=== PATIENT | male | born 1960 | race Caucasian/White ===

== ENCOUNTER 2017-04-24 10:43 | Inpatient (IN) | payer MEDICAID, OTHER ==
[2017-04-24] MEDS ORDERED: ASPIRIN 81 MG TAB PO (11:03)
[2017-04-24 11:51] LABS: ADD MAN DIFF? NO
[2017-04-24] MEDS: SOD CHLORIDE 0.9% 500 ML IV (12:01)
[2017-04-24] MEDS: PANTOPRAZOLE 40 MG INJ IV (12:07)
[2017-04-24 12:12] LABS: ALANINE AMINOTRANSFERASE 38 IU/L (13-69); ALBUMIN 3.2 g/dl (3.3-4.9); ALBUMIN/GLOBULIN RATIO 0.91; ALKALINE PHOSPHATASE 125 IU/L (42-121); ANION GAP 18 (8-16); ASPARTATE AMINO TRANSFERASE 45 IU/L (15-46); BILIRUBIN,INDIRECT 1.9 mg/dl (0-1.1); BILIRUBIN,TOTAL 1.9 mg/dl (0.2-1.3); BLOOD UREA NITROGEN 21 mg/dl (7-20); CALCIUM 8.3 mg/dl (8.4-10.2); CARBON DIOXIDE 19 mmol/L (21-31); CHLORIDE 105 mmol/L (97-110); CREATININE 0.84 mg/dl (0.61-1.24); GLUCOSE 212 mg/dl (70-220); LIPASE 197 U/L (23-300); POTASSIUM 3.8 mmol/L (3.5-5.1); SODIUM 138 mmol/L (135-144); TOTAL PROTEIN 6.7 g/dl (6.1-8.1)
[2017-04-24 12:25] LABS: INR 1.55; PROTIME 18.9 Sec (11.9-14.9); PT RATIO 1.5
[2017-04-24 12:26] LABS: PARTIAL THROMBOPLASTIN TIME 37.7 Sec (25.0-35.0)
[2017-04-24 12:41] LABS: WHITE BLOOD COUNT 7.4 10^3/ul (4.8-10.8)
[2017-04-24 12:41] LABS: ABNORMAL IP MESSAGE 1; BASOPHILS % 0.1 % (0.0-2.0); EOSINOPHILS % 0.3 % (0.0-7.0); LYMPHOCYTES % 13.4 % (15.0-51.0); MEAN CORPUSCULAR HEMOGLOBIN 16.5 pg (29.0-33.0); MEAN CORPUSCULAR HGB CONC 25.5 g/dl (32.0-37.0); MEAN CORPUSCULAR VOLUME 64.7 fl (82.0-101.0); MONOCYTE # 0.8 10^3/ul (0.3-0.9); MONOCYTES % 10.3 % (0.0-11.0); NEUTROPHIL # 5.6 10^3/ul (1.6-7.5); NEUTROPHILS % 75.4 % (39.0-77.0); NUCLEATED RED BLOOD CELLS% 0.4 /100WBC (0.0-0.0); PLATELET COUNT 177 10^3/UL (140-415); POSITIVE DIFF @See below
[2017-04-24 12:48] LABS: HEMOGLOBIN 2.8 g/dl (14.0-18.0)
[2017-04-24] MEDS: SOD CHLORIDE 0.9% 250 ML IV (12:52)
[2017-04-24 13:01] LABS: TROPONIN-I 0.881 ng/ml (0.00-0.12)
[2017-04-24 14:04] LABS: OCCULT BLOOD STOOL POSITIVE (NEGATIVE)
[2017-04-24] MEDS: OCTREOTIDE 50 MCG in SOD CHLORIDE 0.9% 25 ML IVPB (15:34)
[2017-04-24] MEDS: OCTREOTIDE 500 MCG in SOD CHLORIDE 0.9% 49 ML IV (16:10)
[2017-04-24] MEDS ORDERED: morphine 2 MG INJ IV (18:00)
[2017-04-24] MEDS ORDERED: ONDANSETRON 4 MG INJ IV (18:00)
[2017-04-24 18:15] LABS: CREATINE KINASE 78 IU/L (23-200)
[2017-04-24 18:27] LABS: CK INDEX 3.7
[2017-04-24 18:28] LABS: CK-MB 2.89 ng/ml (0.0-2.4); TROPONIN-I 0.832 ng/ml (0.00-0.12)
[2017-04-24] MEDS ORDERED: LORAZEPAM 2 MG INJ IV (18:30)
[2017-04-24 18:51] LABS: MAGNESIUM 1.9 mg/dl (1.7-2.5)
[2017-04-24] MEDS: FUROSEMIDE 20 MG INJ IV (21:46)
[2017-04-24] MEDS: PANTOPRAZOLE IV 80 MG in SOD CHLORIDE 0.9% 100 ML IV (22:04)
[2017-04-24] MEDS: PHYTONADIONE 10 MG in DEXTROSE 5% 50 ML IVPB (22:12)
[2017-04-24] MEDS: CHLORDIAZEPOXIDE 25 MG CAP PO (22:20)
[2017-04-25] MEDS: OCTREOTIDE 500 MCG in DEXTROSE 5% 49 ML IV ×2 (00:12→21:09)
[2017-04-25] MEDS: PANTOPRAZOLE IV 80 MG in SOD CHLORIDE 0.9% 100 ML IV ×2 (00:13→15:16)
[2017-04-25] MEDS: SOD CHLORIDE 0.9% 1,000 ML IV ×3 (00:14→18:59)
[2017-04-25 02:03] LABS: IMMEDIATE SPIN CROSSMATCH 1 8
[2017-04-25 05:20] LABS: ADD MAN DIFF? NO
[2017-04-25 05:29] LABS: ABNORMAL IP MESSAGE 1; BASOPHILS % 0.2 % (0.0-2.0); EOSINOPHILS # 0.1 10^3/ul (0.0-0.5); EOSINOPHILS % 1.1 % (0.0-7.0); HEMATOCRIT 19.7 % (42.0-52.0); LYMPHOCYTES # 0.8 10^3/ul (0.8-2.9); LYMPHOCYTES % 15.2 % (15.0-51.0); MEAN CORPUSCULAR HEMOGLOBIN 23.4 pg (29.0-33.0); MEAN CORPUSCULAR HGB CONC 31.5 g/dl (32.0-37.0); MEAN CORPUSCULAR VOLUME 74.3 fl (82.0-101.0); MONOCYTE # 0.6 10^3/ul (0.3-0.9); MONOCYTES % 10.4 % (0.0-11.0); NEUTROPHILS % 72.9 % (39.0-77.0); NUCLEATED RED BLOOD CELLS% 0.4 /100WBC (0.0-0.0); PLATELET COUNT 101 10^3/UL (140-415); POSITIVE DIFF @See below; RED BLOOD COUNT 2.65 10^6/ul (4.70-6.10); RED CELL DISTRIBUTION WIDTH 24.4 % (11.5-14.5)
[2017-04-25 05:29] LABS: WHITE BLOOD COUNT 5.5 10^3/ul (4.8-10.8)
[2017-04-25 05:48] LABS: CREATINE KINASE 98 IU/L (23-200)
[2017-04-25 05:52] LABS: HEMOGLOBIN 6.2 g/dl (14.0-18.0)
[2017-04-25 05:58] LABS: ALANINE AMINOTRANSFERASE 45 IU/L (13-69); ALBUMIN/GLOBULIN RATIO 0.78; ALKALINE PHOSPHATASE 114 IU/L (42-121); ANION GAP 12 (8-16); ASPARTATE AMINO TRANSFERASE 67 IU/L (15-46); BILIRUBIN,INDIRECT 3.8 mg/dl (0-1.1); BILIRUBIN,TOTAL 3.8 mg/dl (0.2-1.3); BLOOD UREA NITROGEN 21 mg/dl (7-20); CALCIUM 8.3 mg/dl (8.4-10.2); CARBON DIOXIDE 25 mmol/L (21-31); CHLORIDE 106 mmol/L (97-110); CREATININE 0.82 mg/dl (0.61-1.24); GLUCOSE 187 mg/dl (70-220); MAGNESIUM 1.9 mg/dl (1.7-2.5); PHOSPHORUS 3.4 mg/dl (2.5-4.9); POTASSIUM 3.6 mmol/L (3.5-5.1); SODIUM 139 mmol/L (135-144); TOTAL PROTEIN 6.8 g/dl (6.1-8.1)
[2017-04-25 06:00] LABS: CK INDEX 2.6; CK-MB 2.51 ng/ml (0.0-2.4)
[2017-04-25] MEDS: SOD CHLORIDE 0.9% 250 ML IV* (08:15)
[2017-04-25] MEDS: CHLORDIAZEPOXIDE 25 MG CAP PO ×3 (08:53→21:09)
[2017-04-25 09:55] LABS: PATH REVIEW CH
[2017-04-25 10:52] LABS: IMMEDIATE SPIN CROSSMATCH 1
[2017-04-25] MEDS: MULTIVITAMINS 10 ML, THIAMINE 100 MG, FOLIC ACID 1 MG in SOD CHLORIDE 0.9% 1,000 ML IVPB (11:00)
[2017-04-25] MEDS: FUROSEMIDE 20 MG INJ IV (13:14)
[2017-04-25 14:42] LABS: ADD MAN DIFF? NO
[2017-04-25 14:43] LABS: ABNORMAL IP MESSAGE 1; BASOPHILS % 0.2 % (0.0-2.0); EOSINOPHILS # 0.1 10^3/ul (0.0-0.5); EOSINOPHILS % 1.4 % (0.0-7.0); HEMOGLOBIN 8.3 g/dl (14.0-18.0); LYMPHOCYTES # 0.9 10^3/ul (0.8-2.9); LYMPHOCYTES % 18.5 % (15.0-51.0); MEAN CORPUSCULAR HEMOGLOBIN 24.2 pg (29.0-33.0); MEAN CORPUSCULAR HGB CONC 31.9 g/dl (32.0-37.0); MEAN CORPUSCULAR VOLUME 75.8 fl (82.0-101.0); MONOCYTE # 0.6 10^3/ul (0.3-0.9); MONOCYTES % 11.8 % (0.0-11.0); NEUTROPHIL # 3.3 10^3/ul (1.6-7.5); NEUTROPHILS % 67.5 % (39.0-77.0); NUCLEATED RED BLOOD CELLS% 0.6 /100WBC (0.0-0.0); PLATELET COUNT 102 10^3/UL (140-415); POSITIVE DIFF @See below; RED BLOOD COUNT 3.43 10^6/ul (4.70-6.10); RED CELL DISTRIBUTION WIDTH 21.9 % (11.5-14.5)
[2017-04-25 14:43] LABS: WHITE BLOOD COUNT 4.9 10^3/ul (4.8-10.8)
[2017-04-25] MEDS: LIDOCAINE 2% (SDV) 5 ML INJ (17:53)
[2017-04-25] MEDS: MIDAZOLAM 1 MG/ML 2 ML INJ (17:54)
[2017-04-25] MEDS: ETOMIDATE 20 MG INJ (17:54)
[2017-04-25] MEDS ORDERED: PHENYLephrine (100 MCG/ML) 5ML SYG (17:56)
[2017-04-25] MEDS ORDERED: ONDANSETRON 4 MG INJ IV (19:00)
[2017-04-26] MEDS: PANTOPRAZOLE (EC) 40 MG TAB PO (05:05)
[2017-04-26 05:27] LABS: ADD MAN DIFF? NO
[2017-04-26 05:39] LABS: ABNORMAL IP MESSAGE 1; BASOPHILS % 0.2 % (0.0-2.0); EOSINOPHILS # 0.1 10^3/ul (0.0-0.5); EOSINOPHILS % 2.5 % (0.0-7.0); HEMOGLOBIN 7.6 g/dl (14.0-18.0); LYMPHOCYTES # 0.9 10^3/ul (0.8-2.9); LYMPHOCYTES % 19.8 % (15.0-51.0); MEAN CORPUSCULAR HEMOGLOBIN 24.3 pg (29.0-33.0); MEAN CORPUSCULAR HGB CONC 31.7 g/dl (32.0-37.0); MEAN CORPUSCULAR VOLUME 76.7 fl (82.0-101.0); MONOCYTE # 0.5 10^3/ul (0.3-0.9); MONOCYTES % 10.4 % (0.0-11.0); NEUTROPHILS % 66.9 % (39.0-77.0); NUCLEATED RED BLOOD CELLS% 0.5 /100WBC (0.0-0.0); PLATELET COUNT 84 10^3/UL (140-415); POSITIVE DIFF @See below; RED BLOOD COUNT 3.13 10^6/ul (4.70-6.10); RED CELL DISTRIBUTION WIDTH 22.8 % (11.5-14.5)
[2017-04-26 05:39] LABS: WHITE BLOOD COUNT 4.4 10^3/ul (4.8-10.8)
[2017-04-26 06:19] LABS: ALANINE AMINOTRANSFERASE 57 IU/L (13-69); ALBUMIN 2.8 g/dl (3.3-4.9); ALBUMIN/GLOBULIN RATIO 0.82; ALKALINE PHOSPHATASE 99 IU/L (42-121); ANION GAP 12 (8-16); ASPARTATE AMINO TRANSFERASE 82 IU/L (15-46); BILIRUBIN,INDIRECT 2.9 mg/dl (0-1.1); BILIRUBIN,TOTAL 2.9 mg/dl (0.2-1.3); BLOOD UREA NITROGEN 17 mg/dl (7-20); CALCIUM 7.8 mg/dl (8.4-10.2); CARBON DIOXIDE 26 mmol/L (21-31); CHLORIDE 109 mmol/L (97-110); CREATININE 0.83 mg/dl (0.61-1.24); GLUCOSE 119 mg/dl (70-220); POTASSIUM 3.1 mmol/L (3.5-5.1); SODIUM 144 mmol/L (135-144); TOTAL PROTEIN 6.2 g/dl (6.1-8.1)
[2017-04-26] MEDS: CHLORDIAZEPOXIDE 25 MG CAP PO ×3 (08:06→20:45)
[2017-04-26] MEDS: MULTIVITAMINS 10 ML, THIAMINE 100 MG, FOLIC ACID 1 MG in SOD CHLORIDE 0.9% 1,000 ML IVPB (08:06)
[2017-04-26] MEDS: SOD CHLORIDE 0.9% 1,000 ML IV ×2 (08:25→19:59)
[2017-04-26] MEDS: PHYTONADIONE 10 MG/ML INJ SC (08:54)
[2017-04-26 08:55] LABS: IRON 21 ug/dl (35-150)
[2017-04-26] MEDS: POTASSIUM CHLORIDE (SR) 20 MEQ TAB PO ×2 (08:55→13:27)
[2017-04-26 09:05] LABS: % IRON SATURATION 6 % SAT (22-52); TOTAL IRON BINDING CAPACITY 327 ug/dl (241-421)
[2017-04-26 09:32] LABS: FERRITIN 20.8 ng/ml (11.1-264.0)
[2017-04-26 10:08] LABS: HEPATITIS C VIRAL ANTIBODY NEGATIVE (NEGATIVE)
[2017-04-26 11:27] LABS: ADD MAN DIFF? NO
[2017-04-26 11:33] LABS: WHITE BLOOD COUNT 4.8 10^3/ul (4.8-10.8)
[2017-04-26 11:33] LABS: ABNORMAL IP MESSAGE 1; BASOPHILS % 0.2 % (0.0-2.0); EOSINOPHILS # 0.1 10^3/ul (0.0-0.5); EOSINOPHILS % 2.3 % (0.0-7.0); HEMATOCRIT 24.3 % (42.0-52.0); HEMOGLOBIN 7.5 g/dl (14.0-18.0); LYMPHOCYTES # 0.8 10^3/ul (0.8-2.9); LYMPHOCYTES % 16.2 % (15.0-51.0); MEAN CORPUSCULAR HEMOGLOBIN 23.7 pg (29.0-33.0); MEAN CORPUSCULAR HGB CONC 30.9 g/dl (32.0-37.0); MEAN CORPUSCULAR VOLUME 76.7 fl (82.0-101.0); MONOCYTE # 0.5 10^3/ul (0.3-0.9); MONOCYTES % 10.1 % (0.0-11.0); NEUTROPHIL # 3.4 10^3/ul (1.6-7.5); PLATELET COUNT 80 10^3/UL (140-415); POSITIVE DIFF @See below; RED BLOOD COUNT 3.17 10^6/ul (4.70-6.10); RED CELL DISTRIBUTION WIDTH 23.4 % (11.5-14.5)
[2017-04-26 12:46] LABS: HEPATITIS B SURFACE ANTIGEN NEGATIVE (NEGATIVE)
[2017-04-26] MEDS: LACTULOSE 30ML CUP PO ×2 (13:27→21:15)
[2017-04-26] MEDS: SOD FERRIC GLUC COMPLX 125 MG in SOD CHLORIDE 0.9% 100 ML IVPB (17:29)
[2017-04-26] MEDS: ACETAMINOPHEN 650MG/20.3ML CUP PO (23:45)
[2017-04-27] MEDS: LACTULOSE 30ML CUP PO ×3 (05:48→21:04)
[2017-04-27] MEDS: PANTOPRAZOLE (EC) 40 MG TAB PO (05:48)
[2017-04-27 07:18] LABS: ADD MAN DIFF? NO
[2017-04-27 07:20] LABS: ABNORMAL IP MESSAGE 1; BASOPHILS % 0.2 % (0.0-2.0); EOSINOPHILS # 0.2 10^3/ul (0.0-0.5); EOSINOPHILS % 4.4 % (0.0-7.0); HEMATOCRIT 24.6 % (42.0-52.0); HEMOGLOBIN 7.8 g/dl (14.0-18.0); LYMPHOCYTES # 0.8 10^3/ul (0.8-2.9); LYMPHOCYTES % 17.9 % (15.0-51.0); MEAN CORPUSCULAR HEMOGLOBIN 24.8 pg (29.0-33.0); MEAN CORPUSCULAR HGB CONC 31.7 g/dl (32.0-37.0); MEAN CORPUSCULAR VOLUME 78.1 fl (82.0-101.0); MONOCYTE # 0.5 10^3/ul (0.3-0.9); NEUTROPHIL # 2.9 10^3/ul (1.6-7.5); NEUTROPHILS % 66.3 % (39.0-77.0); PLATELET COUNT 94 10^3/UL (140-415); POSITIVE DIFF @See below; RED BLOOD COUNT 3.15 10^6/ul (4.70-6.10); RED CELL DISTRIBUTION WIDTH 24.3 % (11.5-14.5)
[2017-04-27 07:20] LABS: WHITE BLOOD COUNT 4.4 10^3/ul (4.8-10.8)
[2017-04-27] MEDS: SOD CHLORIDE 0.9% 1,000 ML IV ×2 (07:23→20:52)
[2017-04-27] MEDS: CHLORDIAZEPOXIDE 25 MG CAP PO ×2 (07:26→12:13)
[2017-04-27 07:47] LABS: ALANINE AMINOTRANSFERASE 54 IU/L (13-69); ALBUMIN 2.6 g/dl (3.3-4.9); ALBUMIN/GLOBULIN RATIO 0.76; ALKALINE PHOSPHATASE 100 IU/L (42-121); ANION GAP 13 (8-16); ASPARTATE AMINO TRANSFERASE 66 IU/L (15-46); BILIRUBIN,INDIRECT 1.7 mg/dl (0-1.1); BILIRUBIN,TOTAL 1.8 mg/dl (0.2-1.3); BLOOD UREA NITROGEN 11 mg/dl (7-20); CALCIUM 7.7 mg/dl (8.4-10.2); CARBON DIOXIDE 24 mmol/L (21-31); CHLORIDE 112 mmol/L (97-110); CREATININE 0.67 mg/dl (0.61-1.24); GLUCOSE 107 mg/dl (70-220); POTASSIUM 3.5 mmol/L (3.5-5.1); SODIUM 145 mmol/L (135-144)
[2017-04-27 07:49] LABS: PHOSPHORUS 3.3 mg/dl (2.5-4.9)
[2017-04-27 07:49] LABS: MAGNESIUM 1.8 mg/dl (1.7-2.5)
[2017-04-27 07:53] LABS: TROPONIN-I 0.668 ng/ml (0.00-0.12)
[2017-04-27] MEDS: MULTIVITAMINS 10 ML, THIAMINE 100 MG, FOLIC ACID 1 MG in SOD CHLORIDE 0.9% 1,000 ML IVPB (08:17)
[2017-04-27] MEDS: POTASSIUM CHLORIDE (SR) 20 MEQ TAB PO (10:54)
[2017-04-27] MEDS: NADOLOL 40 MG TAB PO (12:22)
[2017-04-27] MEDS: SOD FERRIC GLUC COMPLX 125 MG in SOD CHLORIDE 0.9% 100 ML IVPB (16:13)
[2017-04-28 06:30] LABS: ADD MAN DIFF? NO
[2017-04-28] MEDS: PANTOPRAZOLE (EC) 40 MG TAB PO (06:32)
[2017-04-28] MEDS: LACTULOSE 30ML CUP PO ×3 (06:32→22:00)
[2017-04-28 06:34] LABS: ABNORMAL IP MESSAGE 1; BASOPHILS % 0.2 % (0.0-2.0); EOSINOPHILS # 0.2 10^3/ul (0.0-0.5); EOSINOPHILS % 3.8 % (0.0-7.0); HEMATOCRIT 26.2 % (42.0-52.0); HEMOGLOBIN 7.9 g/dl (14.0-18.0); MEAN CORPUSCULAR HEMOGLOBIN 23.6 pg (29.0-33.0); MEAN CORPUSCULAR HGB CONC 30.2 g/dl (32.0-37.0); MEAN CORPUSCULAR VOLUME 78.2 fl (82.0-101.0); MONOCYTE # 0.5 10^3/ul (0.3-0.9); MONOCYTES % 8.6 % (0.0-11.0); NEUTROPHIL # 3.6 10^3/ul (1.6-7.5); NEUTROPHILS % 68.2 % (39.0-77.0); NUCLEATED RED BLOOD CELLS # 0.1 10^3/ul (0.0-0.0); NUCLEATED RED BLOOD CELLS% 1.1 /100WBC (0.0-0.0); PLATELET COUNT 94 10^3/UL (140-415); POSITIVE DIFF @See below; RED BLOOD COUNT 3.35 10^6/ul (4.70-6.10); RED CELL DISTRIBUTION WIDTH 25.5 % (11.5-14.5)
[2017-04-28 06:34] LABS: WHITE BLOOD COUNT 5.3 10^3/ul (4.8-10.8)
[2017-04-28 07:39] LABS: ALANINE AMINOTRANSFERASE 52 IU/L (13-69); ALBUMIN 2.7 g/dl (3.3-4.9); ALBUMIN/GLOBULIN RATIO 0.77; ALKALINE PHOSPHATASE 115 IU/L (42-121); ANION GAP 12 (8-16); ASPARTATE AMINO TRANSFERASE 53 IU/L (15-46); BILIRUBIN,INDIRECT 2.1 mg/dl (0-1.1); BILIRUBIN,TOTAL 2.1 mg/dl (0.2-1.3); BLOOD UREA NITROGEN 8 mg/dl (7-20); CALCIUM 7.9 mg/dl (8.4-10.2); CARBON DIOXIDE 23 mmol/L (21-31); CHLORIDE 109 mmol/L (97-110); CREATININE 0.66 mg/dl (0.61-1.24); GLUCOSE 127 mg/dl (70-220); POTASSIUM 3.5 mmol/L (3.5-5.1); SODIUM 140 mmol/L (135-144); TOTAL PROTEIN 6.2 g/dl (6.1-8.1)
[2017-04-28] MEDS: MULTIVITAMINS 10 ML, THIAMINE 100 MG, FOLIC ACID 1 MG in SOD CHLORIDE 0.9% 1,000 ML IVPB ×2 (08:31→11:53)
[2017-04-28] MEDS: NADOLOL 40 MG TAB PO (08:31)
[2017-04-28] MEDS: SOD CHLORIDE 0.9% 1,000 ML IV ×2 (09:29→21:59)
[2017-04-28] MEDS: SOD FERRIC GLUC COMPLX 125 MG in SOD CHLORIDE 0.9% 100 ML IVPB (17:03)
[2017-04-29] MEDS: PANTOPRAZOLE (EC) 40 MG TAB PO (05:33)
[2017-04-29] MEDS: LACTULOSE 30ML CUP PO ×3 (05:33→21:27)
[2017-04-29] MEDS: MULTIVITAMINS 10 ML, THIAMINE 100 MG, FOLIC ACID 1 MG in SOD CHLORIDE 0.9% 1,000 ML IVPB ×2 (08:10→17:36)
[2017-04-29] MEDS: NADOLOL 40 MG TAB PO (08:27)
[2017-04-29] MEDS: INFLUENZA VIRUS VACCINE 0.5 ML SYG IM* (08:33)
[2017-04-29 09:16] LABS: ADD MAN DIFF? NO
[2017-04-29 09:23] LABS: WHITE BLOOD COUNT 6.6 10^3/ul (4.8-10.8)
[2017-04-29 09:23] LABS: ABNORMAL IP MESSAGE 1; BASOPHILS % 0.2 % (0.0-2.0); EOSINOPHILS # 0.2 10^3/ul (0.0-0.5); EOSINOPHILS % 2.3 % (0.0-7.0); HEMATOCRIT 29.4 % (42.0-52.0); LYMPHOCYTES # 1.4 10^3/ul (0.8-2.9); LYMPHOCYTES % 21.8 % (15.0-51.0); MEAN CORPUSCULAR HEMOGLOBIN 24.2 pg (29.0-33.0); MEAN CORPUSCULAR HGB CONC 30.6 g/dl (32.0-37.0); MONOCYTE # 0.7 10^3/ul (0.3-0.9); MONOCYTES % 10.7 % (0.0-11.0); NEUTROPHIL # 4.3 10^3/ul (1.6-7.5); NEUTROPHILS % 64.7 % (39.0-77.0); PLATELET COUNT 95 10^3/UL (140-415); POSITIVE DIFF @See below; RED BLOOD COUNT 3.72 10^6/ul (4.70-6.10); RED CELL DISTRIBUTION WIDTH 25.7 % (11.5-14.5)
[2017-04-29 09:52] LABS: ANION GAP 14 (8-16); BLOOD UREA NITROGEN 6 mg/dl (7-20); CALCIUM 8.2 mg/dl (8.4-10.2); CARBON DIOXIDE 22 mmol/L (21-31); CHLORIDE 107 mmol/L (97-110); CREATININE 0.63 mg/dl (0.61-1.24); GLUCOSE 108 mg/dl (70-220); POTASSIUM 3.5 mmol/L (3.5-5.1); SODIUM 139 mmol/L (135-144)
[2017-04-29] MEDS: SOD CHLORIDE 0.9% 1,000 ML IV ×2 (10:29→22:59)
[2017-04-29] MEDS: BISACODYL (EC) 5 MG TAB PO (15:43)
[2017-04-29] MEDS: SOD FERRIC GLUC COMPLX 125 MG in SOD CHLORIDE 0.9% 100 ML IVPB (17:29)
[2017-04-29] MEDS: MAGNESIUM CITRATE 300 ML BTL PO (17:29)
[2017-04-29] MEDS: POLYETHYLENE GLYCOL 3350 119 GM POWDER PO (17:36)
[2017-04-30] MEDS: LACTULOSE 30ML CUP PO ×3 (05:21→21:18)
[2017-04-30] MEDS: PANTOPRAZOLE (EC) 40 MG TAB PO (05:22)
[2017-04-30] MEDS: POLYETHYLENE GLYCOL 3350 119 GM POWDER PO (05:36)
[2017-04-30 08:30] LABS: ADD MAN DIFF? NO
[2017-04-30] MEDS: BISACODYL (EC) 5 MG TAB PO (08:30)
[2017-04-30 08:33] LABS: WHITE BLOOD COUNT 3.9 10^3/ul (4.8-10.8)
[2017-04-30 08:33] LABS: ABNORMAL IP MESSAGE 1; BASOPHILS % 0.5 % (0.0-2.0); EOSINOPHILS # 0.1 10^3/ul (0.0-0.5); EOSINOPHILS % 3.3 % (0.0-7.0); HEMATOCRIT 28.6 % (42.0-52.0); HEMOGLOBIN 8.8 g/dl (14.0-18.0); LYMPHOCYTES # 0.9 10^3/ul (0.8-2.9); MEAN CORPUSCULAR HEMOGLOBIN 24.7 pg (29.0-33.0); MEAN CORPUSCULAR HGB CONC 30.8 g/dl (32.0-37.0); MEAN CORPUSCULAR VOLUME 80.3 fl (82.0-101.0); MONOCYTE # 0.4 10^3/ul (0.3-0.9); MONOCYTES % 11.3 % (0.0-11.0); NEUTROPHIL # 2.4 10^3/ul (1.6-7.5); NEUTROPHILS % 60.9 % (39.0-77.0); PLATELET COUNT 81 10^3/UL (140-415); POSITIVE DIFF @See below; RED BLOOD COUNT 3.56 10^6/ul (4.70-6.10); RED CELL DISTRIBUTION WIDTH 26.3 % (11.5-14.5)
[2017-04-30] MEDS: NADOLOL 40 MG TAB PO (08:33)
[2017-04-30] MEDS: MULTIVITAMINS 10 ML, THIAMINE 100 MG, FOLIC ACID 1 MG in SOD CHLORIDE 0.9% 1,000 ML IVPB (08:35)
[2017-04-30 09:01] LABS: ANION GAP 13 (8-16); BLOOD UREA NITROGEN 6 mg/dl (7-20); CALCIUM 8.1 mg/dl (8.4-10.2); CARBON DIOXIDE 22 mmol/L (21-31); CHLORIDE 109 mmol/L (97-110); GLUCOSE 99 mg/dl (70-220); POTASSIUM 3.5 mmol/L (3.5-5.1); SODIUM 140 mmol/L (135-144)
[2017-04-30] MEDS: SOD CHLORIDE 0.9% 1,000 ML IV (11:28)
[2017-04-30] MEDS: SOD FERRIC GLUC COMPLX 125 MG in SOD CHLORIDE 0.9% 100 ML IVPB (17:00)
[2017-04-30] MEDS: PROPOFOL 40 ML (18:41)
[2017-04-30] MEDS: MIDAZOLAM 1 MG/ML 2 ML INJ (18:41)
[2017-04-30] MEDS: LIDOCAINE 2% (SDV) 5 ML INJ (18:41)
[2017-04-30] MEDS: FENTAnyl 50 MCG/ML VIAL (18:41)
[2017-05-01] MEDS: SOD CHLORIDE 0.9% 1,000 ML IV ×2 (00:55→12:29)
[2017-05-01] MEDS: PANTOPRAZOLE (EC) 40 MG TAB PO (06:45)
[2017-05-01] MEDS: LACTULOSE 30ML CUP PO ×2 (06:45→14:56)
[2017-05-01] MEDS: MULTIVITAMINS 10 ML, THIAMINE 100 MG, FOLIC ACID 1 MG in SOD CHLORIDE 0.9% 1,000 ML IVPB (08:05)
[2017-05-01] MEDS: NADOLOL 40 MG TAB PO (08:09)
[2017-05-01 08:17] LABS: ADD MAN DIFF? NO
[2017-05-01 08:29] LABS: WHITE BLOOD COUNT 3.2 10^3/ul (4.8-10.8)
[2017-05-01 08:29] LABS: ABNORMAL IP MESSAGE 1; BASOPHILS % 0.3 % (0.0-2.0); EOSINOPHILS # 0.1 10^3/ul (0.0-0.5); EOSINOPHILS % 3.4 % (0.0-7.0); HEMOGLOBIN 8.4 g/dl (14.0-18.0); LYMPHOCYTES # 0.7 10^3/ul (0.8-2.9); LYMPHOCYTES % 20.7 % (15.0-51.0); MEAN CORPUSCULAR HEMOGLOBIN 25.5 pg (29.0-33.0); MEAN CORPUSCULAR HGB CONC 31.1 g/dl (32.0-37.0); MEAN CORPUSCULAR VOLUME 82.1 fl (82.0-101.0); MONOCYTE # 0.4 10^3/ul (0.3-0.9); MONOCYTES % 11.5 % (0.0-11.0); NEUTROPHIL # 2.1 10^3/ul (1.6-7.5); NEUTROPHILS % 63.8 % (39.0-77.0); POSITIVE DIFF @See below; RED BLOOD COUNT 3.29 10^6/ul (4.70-6.10); RED CELL DISTRIBUTION WIDTH 26.2 % (11.5-14.5)
[2017-05-01 08:33] LABS: PLATELET COUNT 82 10^3/UL (140-415)
[2017-05-01 08:38] LABS: ANION GAP 10 (8-16); BLOOD UREA NITROGEN 7 mg/dl (7-20); CARBON DIOXIDE 23 mmol/L (21-31); CHLORIDE 111 mmol/L (97-110); CREATININE 0.67 mg/dl (0.61-1.24); GLUCOSE 140 mg/dl (70-220); POTASSIUM 3.2 mmol/L (3.5-5.1); SODIUM 141 mmol/L (135-144)
[2017-05-01] MEDS: POTASSIUM CHLORIDE (SR) 20 MEQ TAB PO (16:17)
== END 2017-05-01 18:42 | disposition home or self-care (01) | DRG 377 ==
LOC: MS4 04-26 18:25 → E/R 10:43 → ICU 22:58
PROVIDERS: Family Medicine
PROC: 0DJ08ZZ Inspection of Upper Intestinal Tract, Via Natural or Artificial Opening Endoscopic (ICD-10-PCS; principal; 2017-04-25 17:00)
PROC: 30233N1 Transfusion of Nonautologous Red Blood Cells into Peripheral Vein, Percutaneous Approach (ICD-10-PCS; 2017-04-25 17:00)
PROC: 30233K1 Transfusion of Nonautologous Frozen Plasma into Peripheral Vein, Percutaneous Approach (ICD-10-PCS; 2017-04-25 17:00)
PROC: 0D5M8ZZ Destruction of Descending Colon, Via Natural or Artificial Opening Endoscopic (ICD-10-PCS; 2017-04-25 17:00)
DX: K92.1 Melena (principal); I21.A1 Myocardial infarction type 2; D68.4 Acquired coagulation factor deficiency; D62 Acute posthemorrhagic anemia; K76.6 Portal hypertension; I85.10 Secondary esophageal varices without bleeding; K70.30 Alcoholic cirrhosis of liver without ascites; E87.6 Hypokalemia; E80.6 Other disorders of bilirubin metabolism; F10.20 Alcohol dependence, uncomplicated; K31.89 Other diseases of stomach and duodenum; K63.5 Polyp of colon; K64.8 Other hemorrhoids
CPT/HCPCS: 36415; 36430; 71045; 80048; 80053; 82270; 82550; 82553; 82728; 83540; 83690; 83735; 84100; 84443; 84484; 85025; 85610; 85730; 86803; 86850; 86900; 86901; 86920; 87081; 87340; 88305; 93005; 93306; 96374; 96375; 96376; 99291-25; J1940

== ENCOUNTER 2017-09-11 11:59 | Inpatient (IN) | payer BC, MEDICAID ==
[2017-09-11 12:22] LABS: ADD MAN DIFF? NO
[2017-09-11 12:25] LABS: ABNORMAL IP MESSAGE 1; BASOPHILS % 0.3 % (0.0-2.0); EOSINOPHILS % 0.3 % (0.0-7.0); HEMATOCRIT 15.8 % (42.0-52.0); LYMPHOCYTES # 0.7 10^3/ul (0.8-2.9); LYMPHOCYTES % 19.5 % (15.0-51.0); MEAN CORPUSCULAR HEMOGLOBIN 18.1 pg (29.0-33.0); MEAN CORPUSCULAR HGB CONC 27.2 g/dl (32.0-37.0); MEAN CORPUSCULAR VOLUME 66.4 fl (82.0-101.0); MONOCYTE # 0.3 10^3/ul (0.3-0.9); MONOCYTES % 8.9 % (0.0-11.0); NEUTROPHIL # 2.7 10^3/ul (1.6-7.5); NEUTROPHILS % 70.7 % (39.0-77.0); PLATELET COUNT 94 10^3/UL (140-415); RED BLOOD COUNT 2.38 10^6/ul (4.70-6.10); RED CELL DISTRIBUTION WIDTH 18.7 % (11.5-14.5)
[2017-09-11 12:25] LABS: WHITE BLOOD COUNT 3.8 10^3/ul (4.8-10.8)
[2017-09-11 12:34] LABS: HEMOGLOBIN 4.3 g/dl (14.0-18.0); PATH REVIEW? YES
[2017-09-11] MEDS: SOD CHLORIDE 0.9% 250 ML IV (12:35)
[2017-09-11] MEDS: SOD CHLORIDE 0.9% 1,000 ML IV ×2 (12:38→22:45)
[2017-09-11 12:46] LABS: ANION GAP 17 (8-16); BLOOD UREA NITROGEN 17 mg/dl (7-20); CALCIUM 8.4 mg/dl (8.4-10.2); CARBON DIOXIDE 20 mmol/L (21-31); CHLORIDE 101 mmol/L (97-110); CREATININE 0.57 mg/dl (0.61-1.24); POTASSIUM 4.5 mmol/L (3.5-5.1); SODIUM 133 mmol/L (135-144)
[2017-09-11 12:54] LABS: GLUCOSE 570 mg/dl (70-220)
[2017-09-11 12:58] LABS: TROPONIN-I < 0.010 ng/ml (0.000-0.120)
[2017-09-11 13:00] LABS: ADD UMIC NO; UR ASCORBIC ACID NEGATIVE (NEGATIVE); UR BILIRUBIN (Dip) NEGATIVE (NEGATIVE); UR BLOOD (Dip) NEGATIVE (NEGATIVE); UR CLARITY CLEAR (CLEAR); UR COLOR STRAW (YELLOW); UR GLUCOSE (Dip) 3+ mg/dL (NEGATIVE); UR KETONES (Dip) NEGATIVE (NEGATIVE); UR LEUKOCYTE ESTERASE (Dip) NEGATIVE Leu/ul (NEGATIVE); UR NITRITE (Dip) NEGATIVE (NEGATIVE); UR SPECIFIC GRAVITY (Dip) 1.022 (1.003-1.030); UR TOTAL PROTEIN (Dip) NEGATIVE (NEGATIVE); UR UROBILINOGEN (Dip) NEGATIVE (NEGATIVE)
[2017-09-11] MEDS ORDERED: ONDANSETRON 4 MG INJ IV (14:00)
[2017-09-11] MEDS ORDERED: NACL 0.9% 3 ML SYG IV (18:30)
[2017-09-11] MEDS ORDERED: DEXTROSE 50% 50 ML SYRINGE IV ×2 (19:30)
[2017-09-11] MEDS ORDERED: GLUCAGON 1 MG INJ IM (19:30)
[2017-09-11] MEDS ORDERED: GLUCOSE GEL 15 GRAM TUBE PO ×2 (19:30)
[2017-09-11] MEDS ORDERED: GLUCOSE GEL 15 GRAM TUBE BUCCAL (19:30)
[2017-09-11] MEDS: INSULIN LISPRO 100 UNIT/ML VIAL SC (20:32)
[2017-09-11] MEDS: INSULIN GLARGINE [LANTus] (100 UNITS/ML) SYG SC (22:36)
[2017-09-11] MEDS: INSULIN ASPART [NOVOLOG] 3 ML PEN SC (22:37)
[2017-09-11] MEDS: Insulin NOVOLOG SS MILD Algorithm (SS with meals and bedtime) SC (22:38)
[2017-09-12] MEDS: morphine 2 MG INJ IV (01:24)
[2017-09-12] MEDS: ACCU-CHEK XX (02:00)
[2017-09-12] MEDS: SOD CHLORIDE 0.9% 1,000 ML IV ×3 (04:30→12:47)
[2017-09-12 07:36] LABS: ADD MAN DIFF? NO
[2017-09-12 07:42] LABS: ABNORMAL IP MESSAGE 1; BASOPHILS % 0.2 % (0.0-2.0); EOSINOPHILS # 0.1 10^3/ul (0.0-0.5); EOSINOPHILS % 1.4 % (0.0-7.0); LYMPHOCYTES # 1.2 10^3/ul (0.8-2.9); LYMPHOCYTES % 27.6 % (15.0-51.0); MEAN CORPUSCULAR HEMOGLOBIN 21.4 pg (29.0-33.0); MEAN CORPUSCULAR HGB CONC 29.5 g/dl (32.0-37.0); MEAN CORPUSCULAR VOLUME 72.5 fl (82.0-101.0); MONOCYTE # 0.5 10^3/ul (0.3-0.9); MONOCYTES % 11.1 % (0.0-11.0); NEUTROPHIL # 2.5 10^3/ul (1.6-7.5); NEUTROPHILS % 59.5 % (39.0-77.0); PLATELET COUNT 85 10^3/UL (140-415); POSITIVE DIFF @See below; RED BLOOD COUNT 2.76 10^6/ul (4.70-6.10); RED CELL DISTRIBUTION WIDTH 22.5 % (11.5-14.5)
[2017-09-12 07:42] LABS: WHITE BLOOD COUNT 4.2 10^3/ul (4.8-10.8)
[2017-09-12 08:00] LABS: HEMOGLOBIN 5.9 g/dl (14.0-18.0); PATH REVIEW? YES
[2017-09-12 08:19] LABS: ALANINE AMINOTRANSFERASE 25 IU/L (13-69); ALBUMIN 2.9 g/dl (3.3-4.9); ALKALINE PHOSPHATASE 103 IU/L (42-121); ASPARTATE AMINO TRANSFERASE 29 IU/L (15-46); BILIRUBIN,INDIRECT 1.5 mg/dl (0-1.1); BILIRUBIN,TOTAL 1.5 mg/dl (0.2-1.3); TOTAL PROTEIN 6.5 g/dl (6.1-8.1)
[2017-09-12 08:22] LABS: ANION GAP 9 (8-16); BLOOD UREA NITROGEN 11 mg/dl (7-20); CARBON DIOXIDE 23 mmol/L (21-31); CHLORIDE 108 mmol/L (97-110); GLUCOSE 159 mg/dl (70-220); MAGNESIUM 1.7 mg/dl (1.7-2.5); PHOSPHORUS 3.4 mg/dl (2.5-4.9); POTASSIUM 3.6 mmol/L (3.5-5.1); SODIUM 136 mmol/L (135-144)
[2017-09-12] MEDS: Insulin NOVOLOG SS MILD Algorithm (SS with meals and bedtime) SC ×4 (08:38→20:39)
[2017-09-12] MEDS: INSULIN ASPART [NOVOLOG] 3 ML PEN SC ×3 (08:39→17:24)
[2017-09-12 08:48] LABS: HEMOGLOBIN A1C 8.4 % (0-5.9)
[2017-09-12 09:11] LABS: ANISOCYTOSIS 3+ (0-0); BASOPHILS % (M) 2 % (0-2); EOSINOPHILS % (M) 2 % (0-7); HYPOCHROMASIA 3+ (0-0); LYMPHOCYTES #M 0.8 10^3/ul (0.8-2.9); LYMPHOCYTES % (M) 20 % (15-51); MICROCYTOSIS 3+ (0-0); MONOCYTE #M 0.1 10^3/ul (0.3-0.9); MONOCYTES % (M) 4 % (0-11); MYELOCYTES % (M) 2 % (0-0); PLATELET ESTIMATE DECREASED; POIKILOCYTOSIS 2+ (0-0); POLYCHROMASIA 1+ (0-0); SEGMENTED NEUTROPHILS (M) % 70 % (39-77); SMUDGE%M 1 % (0-0); TARGET CELLS 1+ (0-0)
[2017-09-12 10:46] LABS: MITOCHONDRIAL TB NEGATIVE (NEGATIVE); SMOOTH MUSCLE AB SCREEN NEGATIVE (NEGATIVE)
[2017-09-12] MEDS: ACETAMINOPHEN 325 MG TAB PO ×2 (11:53→19:27)
[2017-09-12 13:46] LABS: ANA SCREEN NEGATIVE (NEGATIVE)
[2017-09-12] MEDS: HYDROCODONE/APAP (5/325) TAB PO (16:38)
[2017-09-12 18:51] LABS: ADD MAN DIFF? NO
[2017-09-12 18:53] LABS: ABNORMAL IP MESSAGE 1; BASOPHILS % 0.3 % (0.0-2.0); EOSINOPHILS % 1.1 % (0.0-7.0); HEMATOCRIT 22.3 % (42.0-52.0); LYMPHOCYTES # 0.7 10^3/ul (0.8-2.9); LYMPHOCYTES % 20.7 % (15.0-51.0); MEAN CORPUSCULAR HEMOGLOBIN 22.3 pg (29.0-33.0); MEAN CORPUSCULAR VOLUME 74.3 fl (82.0-101.0); MONOCYTE # 0.4 10^3/ul (0.3-0.9); MONOCYTES % 11.5 % (0.0-11.0); NEUTROPHIL # 2.3 10^3/ul (1.6-7.5); NEUTROPHILS % 66.1 % (39.0-77.0); POSITIVE DIFF @See below; RED CELL DISTRIBUTION WIDTH 23.4 % (11.5-14.5)
[2017-09-12 18:53] LABS: WHITE BLOOD COUNT 3.5 10^3/ul (4.8-10.8)
[2017-09-12 19:08] LABS: HEMOGLOBIN 6.7 g/dl (14.0-18.0); PLATELET COUNT 79 10^3/UL (140-415)
[2017-09-12] MEDS: INSULIN GLARGINE [LANTus] (100 UNITS/ML) SYG SC (20:40)
[2017-09-13 00:38] LABS: IMMEDIATE SPIN CROSSMATCH 1 5
[2017-09-13] MEDS: ACCU-CHEK XX ×2 (02:00→20:58)
[2017-09-13] MEDS: Insulin NOVOLOG SS MILD Algorithm (SS with meals and bedtime) SC ×4 (07:30→20:52)
[2017-09-13 07:46] LABS: ADD MAN DIFF? NO
[2017-09-13 07:51] LABS: ABNORMAL IP MESSAGE 1; BASOPHILS % 0.3 % (0.0-2.0); EOSINOPHILS % 1.3 % (0.0-7.0); HEMATOCRIT 24.6 % (42.0-52.0); HEMOGLOBIN 7.3 g/dl (14.0-18.0); LYMPHOCYTES # 0.6 10^3/ul (0.8-2.9); LYMPHOCYTES % 20.3 % (15.0-51.0); MEAN CORPUSCULAR HEMOGLOBIN 22.3 pg (29.0-33.0); MEAN CORPUSCULAR HGB CONC 29.7 g/dl (32.0-37.0); MONOCYTE # 0.4 10^3/ul (0.3-0.9); MONOCYTES % 11.1 % (0.0-11.0); NEUTROPHIL # 2.1 10^3/ul (1.6-7.5); NEUTROPHILS % 66.7 % (39.0-77.0); PLATELET COUNT 75 10^3/UL (140-415); POSITIVE DIFF @See below; RED BLOOD COUNT 3.28 10^6/ul (4.70-6.10); RED CELL DISTRIBUTION WIDTH 23.9 % (11.5-14.5)
[2017-09-13 07:51] LABS: WHITE BLOOD COUNT 3.2 10^3/ul (4.8-10.8)
[2017-09-13 08:20] LABS: ANION GAP 9 (8-16); BLOOD UREA NITROGEN 8 mg/dl (7-20); CALCIUM 8.1 mg/dl (8.4-10.2); CARBON DIOXIDE 25 mmol/L (21-31); CHLORIDE 106 mmol/L (97-110); CREATININE 0.52 mg/dl (0.61-1.24); GLUCOSE 187 mg/dl (70-220); MAGNESIUM 1.8 mg/dl (1.7-2.5); PHOSPHORUS 3.3 mg/dl (2.5-4.9); POTASSIUM 3.5 mmol/L (3.5-5.1); SODIUM 136 mmol/L (135-144)
[2017-09-13] MEDS: INSULIN ASPART [NOVOLOG] 3 ML PEN SC ×3 (08:42→17:22)
[2017-09-13] MEDS: BARIUM SULF 2% 450 ML BTL (BERRY SMOOTHIE) PO (11:17)
[2017-09-13] MEDS: INSULIN GLARGINE [LANTus] (100 UNITS/ML) SYG SC (20:58)
[2017-09-14 06:14] LABS: ADD MAN DIFF? NO
[2017-09-14 06:17] LABS: ABNORMAL IP MESSAGE 1; EOSINOPHILS % 0.7 % (0.0-7.0); HEMATOCRIT 23.6 % (42.0-52.0); HEMOGLOBIN 7.1 g/dl (14.0-18.0); LYMPHOCYTES # 0.8 10^3/ul (0.8-2.9); LYMPHOCYTES % 30.6 % (15.0-51.0); MEAN CORPUSCULAR HEMOGLOBIN 22.2 pg (29.0-33.0); MEAN CORPUSCULAR HGB CONC 30.1 g/dl (32.0-37.0); MEAN CORPUSCULAR VOLUME 73.8 fl (82.0-101.0); MONOCYTE # 0.4 10^3/ul (0.3-0.9); MONOCYTES % 14.6 % (0.0-11.0); NEUTROPHIL # 1.5 10^3/ul (1.6-7.5); NEUTROPHILS % 54.1 % (39.0-77.0); PLATELET COUNT 77 10^3/UL (140-415); POSITIVE DIFF @See below; RED CELL DISTRIBUTION WIDTH 24.2 % (11.5-14.5)
[2017-09-14 06:17] LABS: WHITE BLOOD COUNT 2.7 10^3/ul (4.8-10.8)
[2017-09-14 06:20] LABS: RETICULOCYTE RBC 3.23
[2017-09-14 06:39] LABS: RETICULOCYTE COUNT # 0.113 X10^6 (0.020-0.110); RETICULOCYTE COUNT % 3.5 % (0.5-1.5)
[2017-09-14 06:49] LABS: ANION GAP 13 (8-16); BLOOD UREA NITROGEN 14 mg/dl (7-20); CALCIUM 8.2 mg/dl (8.4-10.2); CARBON DIOXIDE 24 mmol/L (21-31); CHLORIDE 104 mmol/L (97-110); CREATININE 0.59 mg/dl (0.61-1.24); GLUCOSE 137 mg/dl (70-220); MAGNESIUM 1.9 mg/dl (1.7-2.5); PHOSPHORUS 3.6 mg/dl (2.5-4.9); POTASSIUM 3.6 mmol/L (3.5-5.1); SODIUM 137 mmol/L (135-144)
[2017-09-14 06:55] LABS: IRON 15 ug/dl (35-150)
[2017-09-14 07:04] LABS: % IRON SATURATION 4 % SAT (22-52); TOTAL IRON BINDING CAPACITY 388 ug/dl (241-421)
[2017-09-14] MEDS: Insulin NOVOLOG SS MILD Algorithm (SS with meals and bedtime) SC ×3 (08:17→17:48)
[2017-09-14] MEDS: INSULIN ASPART [NOVOLOG] 3 ML PEN SC ×3 (08:18→17:50)
[2017-09-14] MEDS: FERROUS SULFATE (EC) 325 MG TAB PO (13:20)
[2017-09-14 16:38] LABS: IMMEDIATE SPIN CROSSMATCH 1 1
== END 2017-09-14 20:35 | disposition left against medical advice (07) | DRG 812 ==
LOC: E/R 11:59 → MS4 13:49
PROVIDERS: Internal Medicine; Pediatrics
PROC: 30233N1 Transfusion of Nonautologous Red Blood Cells into Peripheral Vein, Percutaneous Approach (ICD-10-PCS; 2017-09-11)
PROC: 30233N1 Transfusion of Nonautologous Red Blood Cells into Peripheral Vein, Percutaneous Approach (ICD-10-PCS; 2017-09-12)
PROC: 30233N1 Transfusion of Nonautologous Red Blood Cells into Peripheral Vein, Percutaneous Approach (ICD-10-PCS; 2017-09-13)
PROC: 30233N1 Transfusion of Nonautologous Red Blood Cells into Peripheral Vein, Percutaneous Approach (ICD-10-PCS; principal; 2017-09-14)
DX: D62 Acute posthemorrhagic anemia (principal); I85.10 Secondary esophageal varices without bleeding; D69.6 Thrombocytopenia, unspecified; E11.65 Type 2 diabetes mellitus with hyperglycemia; K70.30 Alcoholic cirrhosis of liver without ascites; F10.10 Alcohol abuse, uncomplicated; I10 Essential (primary) hypertension; D50.9 Iron deficiency anemia, unspecified; I25.2 Old myocardial infarction; Z79.4 Long term (current) use of insulin
CPT/HCPCS: 36415; 36430; 70450; 74177; 80048; 80076; 81003; 82962; 83036; 83540; 83735; 84100; 84484; 85025; 85045; 86038; 86255; 86850; 86900; 86901; 86920; 93005; 99291-25